=== PATIENT | female | born 1990 | race Caucasian/White ===

== ENCOUNTER 2024-05-25 15:51 | Emergency (ER) | payer MEDICAID ==
[~2024-05-25] VITALS: Ht 167.6 cm; Wt 74.8 kg
[2024-05-25 15:56] VITALS: BP 134/89; PULSE 90; RESP 18; O2SAT 99
[2024-05-25] MEDS ORDERED: dexamethasone sod phosphate 10mg/ml inj IM STA (17:32)
[2024-05-25] MEDS: dexamethasone sod phosphate 10mg/ml inj IV STA (18:04)
[2024-05-25] MEDS: LORazepam 2 mg/ml vial IV STA (18:05)
[2024-05-25] MEDS: CefTRIAXone 2gm/D5W 50ml BAG 50 ML IV ONE (18:05)
[2024-05-25] MEDS ORDERED: PRED20TA PO (18:59)
[2024-05-25] MEDS ORDERED: AMOX-117 PO (18:59)
[2024-05-25 19:09] VITALS: TEMP 97.6
[2024-05-25] MEDS ORDERED: CLIN300C71 PO (19:23)
== END 2024-05-25 19:24 | disposition home or self-care (01) ==
LOC: ER 15:52
DX: J36 Peritonsillar abscess (principal)
CPT/HCPCS: 96365; 96375; 99284; J0696; J1100; J2060

== ENCOUNTER 2025-01-10 13:06 | Day surgery (SDC) | payer MEDICAID ==
[2025-01-06 11:33] LABS: MEAN PLATELET VOLUME 8.2 FL (7.4-10.4); PRE OP HEMATOCRIT 48.3 % (35.0-45.0); PRE OP HEMOGLOBIN 16.3 g/dL (12.0-16.0); PRE OP PLATELET COUNT 280 X10'3 (140-440); PRE OP WHITE BLOOD COUNT 9.1 10'3 (4.8-10.8); RED CELL DISTRIBUTION WIDTH 13.7 % (11.5-14.5)
[2025-01-06 11:50] LABS: CREATININE 0.77 MG/DL (0.40-0.90); PRE OP ALT 20 U/L (30-65); PRE OP ANION GAP 9 (8-16); PRE OP AST 16 U/L (10-37); PRE OP BILIRUB, TOTAL 0.4 MG/DL (0.0-1.0); PRE OP GLUCOSE 95 MG/DL (70-104); PRE OP POTASSIUM 4.2 MMOL/L (3.4-5.1); PRE OP SODIUM 138 MMOL/L (135-145); TOTAL CARBON DIOXIDE 27.3 MMOL/L (24-32); eGFR 85 ML/MIN
[2025-01-06 11:53] LABS: HCG SERUM QL NEGATIVE
[2025-01-10] VITALS (11 sets, daily range): BP systolic 112–157; BP diastolic 69–95; PULSE 61–90; RESP 11–16; TEMP 98.4; O2SAT 95–100
[~2025-01-10] VITALS: Ht 162.6 cm; Wt 72.6 kg
[2025-01-10] MEDS: ceFAZolin 2gm/dext,iso 50mL 50 ML IV ONE (05:30)
[~2025-01-10 13:06] MED LIST: PER5325T PO
[2025-01-10] MEDS ORDERED: ondansetron/PF 4mg/2ml inj IV PRN ×3 (13:30→18:05)
[2025-01-10] MEDS ORDERED: enalaprilat 1.25mg/ml 2ml vial IV PRN ×2 (13:30→18:05)
[2025-01-10] MEDS ORDERED: ringers solution, lacted 1,000 ML IV SCH ×2 (13:30→18:05)
[2025-01-10] MEDS ORDERED: labetalol 20mg/4ml (5mg/ml) syringe IV PRN ×2 (13:30→18:05)
[2025-01-10] MEDS ORDERED: HYDROmorphone/PF 0.2 MG/ML SYRINGE IV PRN ×4 (13:30→18:05)
[2025-01-10] MEDS ORDERED: morphine 4 MG/ML inj SYRINge IV PRN ×3 (13:30→18:05)
[2025-01-10] MEDS ORDERED: fentaNYL/PF 50MCG/1 ML 2ML syringe IV PRN ×3 (13:30→18:05)
--- NOTE | 2025-01-10 13:49 | ELECTROCARDIOGRAPH REPORT ---
[facility] Test Date: 2025-01-10 Test Time: 13:47:37 Pat Name: FLOR ODOM Department: [facility] Patient ID: [id number] Room: Gender: F Event Marketing Coordinator: judith : 1990 Requested By: ANTHONY NORTH Order Number: [id number] Reading MD: Dr. MARYURI Abreu Measurements Intervals [place] Rate: 62 P: 58 PA: 191 QRS: 18 QRSD: 90 T: 29 QT: 393 QTc: 399 Interpretive Statements Sinus rhythm Electronically Signed On 01-10-2025 16:30:[address] MARYURI Abreu Please click the below link to view image of tracing.
[2025-01-10] MEDS: ringers solution, lacted 1,000 ML IV SCH (14:12)
[2025-01-10] MEDS ORDERED: ROPIVAcaine 0.5% (5mg/ml) 30ml vial ONE ×2 (16:32→16:41)
[2025-01-10] MEDS ORDERED: ketorolac trometh 30MG/ML vial 30 MG/ML VIAL ONE ×2 (16:32→18:10)
[2025-01-10] MEDS ORDERED: magnesium hydroxide 30ml (MOM) UD suspension PO PRN (16:40)
[2025-01-10] MEDS ORDERED: oxyCODONE IR 5mg (immed. release) tablet PO PRN ×2 (16:40)
[2025-01-10] MEDS ORDERED: potassium cl 20mEq in 1/2 NS 1,000 ML IV SCH (16:40)
[2025-01-10] MEDS ORDERED: HYDROmorphone inj. 0.5 MG/0.5 ML DISP.SYRIN IV PRN (16:40)
[2025-01-10] MEDS ORDERED: bisacodyl 10mg suppository rectal RC PRN (16:40)
[2025-01-10] MEDS ORDERED: fentaNYL/PF 50MCG/1 ML 2ML syringe ONE (16:41)
[2025-01-10] MEDS ORDERED: midazolam 1 mg/ML 2ml injection ONE (16:41)
[2025-01-10] MEDS ORDERED: BUPIVAcaine/PF 7.5mg/ml (0.75%) 10ml vial ONE (16:41)
[2025-01-10] MEDS ORDERED: LIDOcaine 1%/PF 5ML 10 MG/ML VIAL ONE (16:42)
[2025-01-10] MEDS ORDERED: propofol inj 20 ML IV ONE ×2 (16:42→18:04)
[2025-01-10] MEDS ORDERED: dexamethasone sod phosphate 4mg/ml inj. ONE (16:42)
[2025-01-10] MEDS ORDERED: vancomycin 1,000mg inj ONE (17:11)
[2025-01-10] MEDS ORDERED: morphine 10mg/ml inj. ONE (17:19)
--- NOTE | 2025-01-10 18:00 | ANESTHESIA RECORDS ---
Nerve Block Providers to CC ~ Diagnosis: Nerve Block requested by: ANTHONY NORTH MD Neuraxial/Peripheral Nerve Block requested for Post-operative analgesia by Physician above DIAGNOSIS: Post-operative pain. (Body Area) Shoulder: [ ] Arm: [ ] Hand: [ ] Hip: [ ] Knee: [___Left ] Ankle: [ ] Foot: [ ] Leg: [ Left ] Abdomen: [ ] Other: [ ] Post-operative pain expected to be/is inadequately managed by oral or IV medicines. Regional anesthetic expected to facilitate rehabilitation and/or discharge from facility. Other:[ ] Procedure Performed: Femoral / Saphenous: Left Popliteal Posterior: Left Time out Done?: Yes Time of Time out: 16:48 Procedure Details: PROCEDURE DETAILS: Risks, benefits and alternatives explained Informed consent obtained, and patient wishes to proceed Conscious sedation with indicated monitors Patient positioned, pertinent anatomy defined, sterile technique used Needle used: [ ] 3 1/8 inch Stimuplex Ultra 22ga [x ] 4 inch Stimuplex Ultra 20ga [ ] 6 inch Stimuplex Ultra 20ga [ ] 6 inch, Quikbloc over the needle catheter set 20ga [ ] 4 inch Quikbloc over the needle catheter set 20ga [ ]Other: [ ] Loss of twitch @ [____0.5 ]mA [x ] Single Injection [ ] Catheter Ultrasound Guidance Used: [x ] Yes [ ] No Attempts:[ once ] Medicines injected: [x ]Clonidine Amt:[ 80 mcgs ] [ x ]Dexamethasone Amt:[___5 mgs ] [x ]Ropivacaine Amt:[___0.5% 30 cc ] [ x ]Bupivacaine Amt:[ 0.3% 15 cc ] [ ]Lidocaine Amt:[ ] [ ]Exparel 1.33%:[ ] [ ]Epinephrine Amt[ ] [ ]Other: [ ] Intermittent aspiration during local anesthetic administration No symptoms of intraneural or intravenous injection Patient tolerated procedure well Comments Left Popliteal fossa Block Pt in supine with Left Leg flexed at 90 Degrees. Posterior approach. Ultrasound probe placed back of thigh 2 inches above the knee joint. Easy visualization of the Sciatic nerve. Easy visualization of Spreading of local anesthetic anterior and posterior to the Sciatic nerve sub paraneurally inside sciatic nerve sheath. Meaningful conversation t throughout. No Pain or discomfort during injection. Lt Adductor Canal blk Procedure done before surgery under General anesthesia. Pt supine with Lt leg rotated to Lt slightly. Easy visualization of Adductor Canal with ultra sound anterolateral to Femoral artery at the junction of upper and middle third of thigh. Able to see the tip of the needle and injected local anesthetic with the ultrasound. LILIBETH ARDON MD Jan 10, 2025 18:00
[2025-01-10] MEDS ORDERED: ondansetron/PF 4mg/2ml inj ONE (18:05)
--- NOTE | 2025-01-10 18:07 | OPERATIVE REPORT ---
Operative Report Operative Report rocedure: Removal of internal fixation hardware left knee. Arthrotomy and debridement of left knee joint. Surgeon: Dr. Shayne Martin Cheese Cutter: Ruben Mclaughlin MD Anesthesiologist: Dr. Dykes Anesthesia: Spinal anesthetic Indications: 34-year-old female who is several months post open reduction and internal fixation of a tibial plateau fracture by a different surgeon. 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 Findings: Fractures for the most part healed but significantly collapsed. There was some debris and loose fragments but it did not feel that repeat internal fixation was necessary.. Estimated Blood Loss: 100 mL Complications: None Procedure: The risks, benefits, expected results, and possible complications of the planned procedure had been explained to the patient and informed consent obtained. The patient was taken to the operating room where a spinal anesthetic was administered. The left leg was prepped and draped in the usual sterile fashion with the patient in the supine position on the operating table. A timeout was taken prior to surgery confirming patient identification, operative side operative site, planned procedure, administration of pre-operative antibiotics, site marking, recognition of allergies, and confirming presence of all necessary implants and instruments. The prior anterolateral surgical incision was utilized for the surgical approach. The underlying hardware was identified and removed without difficulty. The lateral tibial plateau was severely collapsed and somewhat fragmented. It was thoroughly debrided to remove any loose bodies. I did not feel that we could gain adequate fixation or substantial support for any type of reconstruction of the lateral aspect of the tibia. We therefore irrigated thoroughly, cleaned things up as best possible to make sure we did not have any loose or fragmented bone and then began closure. The wound was irrigated thoroughly with normal saline and then closed in layers with 0 strata fix suture for deep tissue, 0 strata fix l suture for subcutaneous tissue, and 4-0 strata fix for skin. Sterile dressings were applied, and the patient was returned to the recovery room in satisfactory condition. SHAYNE MARTIN MD Jan 10, 2025 18:07
[2025-01-10] MEDS: fentaNYL/PF 50MCG/1 ML 2ML syringe IV PRN (18:46)
[2025-01-10] MEDS ORDERED: vancomycin/NS 1 GM ADD-VANTAGE 250 ML IV SCH (20:00)
[2025-01-11] MEDS ORDERED: ceFAZolin/D5W- 1GM premix 50 ML IV SCH
== END 2025-01-10 19:55 | disposition home or self-care (01) ==
LOC: PAS 13:06 → EDSTATUS 14:45 → PAS 19:55
PROVIDERS: ATTEND Orthopaedic Surgery
DX: M96.89 Other intraoperative and postprocedural complications and disorders of the musculoskeletal system (principal); M25.562 Pain in left knee; G89.18 Other acute postprocedural pain; Z79.891 Long term (current) use of opiate analgesic; Z98.890 Other specified postprocedural states
CPT/HCPCS: 20680; 36415; 64445; 64447; 73590; 80053; 82948; 84703; 85025; 93005; J1100; J1885; J2250; J2274; J2405; J2704; J2795; J3010; J3373; J3490; J7030; J7120; Z7506; Z7508; Z7512; 76000; A4618; A6449; A7000